=== PATIENT | male | born 1950 | race Caucasian/White ===

== ENCOUNTER 2016-04-13 06:47 | Emergency (ER) | payer MEDICARE ==
[~2016-04-13] VITALS: Ht 182.9 cm; Wt 99.8 kg
[~2016-04-13 06:47] MED LIST: ASPI-482 PO; ATOR20TA58 PO; GLIP10TA13 PO; LISI-338 PO; LISI10TA2 PO; METF100010 PO; METO25TA4 PO; NITR0.4T SL; TICA90TA PO
--- NOTE | 2016-04-13 06:54 | ED.ADGEN ---
Past Medical History Past Medical History: CAD, Diabetes-Type II Past Surgical History: Other Additional Past Surgical Histo: HERNIA REPAIR Alcohol Use: Rarely Drug Use: None Adult General Chief Complaint Chief Complaint: CHEST PAIN HPI HPI Patient is a 65 year old and, history of type 2 diabetes mellitus, hypertension , CAD status post stent placement, with 3 LAD stents placed on 04/10/2016, when he presented with an ST elevation myocardial infarction. Patient presents emergency Department with complaint of increasing shortness of breath, with pain worse with deep inspiration over the past several days. Discharged from hospital on Thursday. He denies any recurrence of the type of chest pain that brought him to the ED, states that he has been compliant with his medications since discharge. Denies any fevers, any chills, any productive cough, any weakness numbness or tingling, any headache or vision changes, any injuries, any GI or complaints. States the pain is located across the anterior portion of his chest, and worse with deep inspiration, is worse when he leans forward, states that it then radiates up into his neck. Review of Systems Review of Systems Constitutional: Denies fever or chills. [] Eyes: Denies change in visual acuity. [] HENT: Denies nasal congestion or sore throat. [] Respiratory: Occasional cough that is nonproductive, increasing shortness of breath with a past several days. [] Cardiovascular: Chest pain, worse with deep inspiration, no edema. GI: Denies abdominal pain, nausea, vomiting, bloody stools or diarrhea. [] : Denies dysuria. [] Musculoskeletal: Denies back pain or joint pain. [] Integument: Denies rash. [] Neurologic: Denies headache, focal weakness or sensory changes. [] Endocrine: Denies polyuria or polydipsia. [] Lymphatic: Denies swollen glands. [] Psychiatric: Denies depression or anxiety. [] Current Medications Current Medications Current Medications Medications (Trade) Dose Ordered Sig/Narciso Start Time Stop Time Status Last Admin Dose Admin Aspirin (Children'S Aspirin) 324 mg 1X ONCE 04/13/16 07:00 04/13/16 07:09 DC 04/13/16 07:41 324 MG Fentanyl Citrate (Fentanyl 2ml Vial) 25 mcg PRN Q15MIN PRN 04/13/16 07:00 04/13/16 09:05 DC Iohexol (Omnipaque 300 Mg/ml) 75 ml 1X ONCE 04/13/16 08:00 04/13/16 08:02 DC Nitroglycerin (Nitrostat) 0.4 mg PRN Q5MIN PRN 04/13/16 07:00 04/13/16 09:05 DC Allergies Allergies Allergies Coded Allergies Type Severity Reaction Last Updated Verified No Known Drug Allergies 04/10/16 No Physical Exam Physical Exam Constitutional: Well developed, well nourished, no acute distress, non-toxic appearance. [] HENT: Normocephalic, atraumatic, bilateral external ears normal, oropharynx moist, no oral exudates, nose normal. [] Eyes: PERRLA, EOMI, conjunctiva normal, no discharge. [] Neck: Normal range of motion, no tenderness, supple, no stridor. [] Cardiovascular:Heart rate regular rhythm, no murmur, S1, S2, no rubs or gallops. [] Lungs & Thorax: Bilateral breath sounds clear to auscultation, no wheezing, rhonchi, rales. No chest wall tenderness or crepitus. [Patient complains of pain with deep inspiration, I am unable to reproduce symptoms with palpation.] Abdomen: Bowel sounds normal, soft, no tenderness, no masses, no pulsatile masses. [] Skin: Warm, dry, no erythema, no rash. [] Back: No tenderness, no CVA tenderness. [] Extremities: No tenderness, no cyanosis, no clubbing, ROM intact, no edema. [ Negative Homans sign.] Neurologic: Alert and oriented X 3, normal motor function, normal sensory function, no focal deficits noted. [] Psychologic: Affect normal, judgement normal, mood normal. [] Current Patient Data Vital Signs Vital Signs Date Time Temp Pulse Resp B/P Pulse Ox O2 Delivery O2 Flow Rate FiO2 04/13/16 08:40 86 20 108/74 95 04/13/16 07:01 99.9 Room Air 99.9 Lab Values Laboratory Tests Test 04/13/16 07:25 White Blood Count 7.3x10^3/uL (4.0-11.0) Red Blood Count 4.87x10^6/uL (4.30-5.70) Hemoglobin 12.7g/dL (13.0-17.5) L Hematocrit 40.1% (39.0-53.0) Mean Corpuscular Volume 82fL (79-100) Mean Corpuscular Hemoglobin 26pg (25-35) Mean Corpuscular Hemoglobin Concent 32g/dL (31-37) Red Cell Distribution Width 13.9% (11.5-14.5) Platelet Count 192x10^3/uL (140-400) Neutrophils (%) (Auto) 71% (31-73) Lymphocytes (%) (Auto) 16% (24-48) L Monocytes (%) (Auto) 10% (0-9) H Eosinophils (%) (Auto) 2% (0-3) Basophils (%) (Auto) 1% (0-3) Neutrophils # (Auto) 5.2x10^3uL (1.8-7.7) Lymphocytes # (Auto) 1.2x10^3/uL (1.0-4.8) Monocytes # (Auto) 0.7x10^3/uL (0.0-1.1) Eosinophils # (Auto) 0.1x10^3/uL (0.0-0.7) Basophils # (Auto) 0.1x10^3/uL (0.0-0.2) Prothrombin Time 13.5SEC (11.7-14.0) Prothrombin Time INR 1.1 (0.8-1.1) PTT 26SEC (24-38) Sodium Level 135mmol/L (136-145) L Potassium Level 4.0mmol/L (3.5-5.1) Chloride Level 102mmol/L (98-107) Carbon Dioxide Level 24mmol/L (21-32) Anion Gap 9 (6-14) Blood Urea Nitrogen 14mg/dL (8-26) Creatinine 1.1mg/dL (0.7-1.3) Estimated GFR (Cockcroft-Gault) 67.0 BUN/Creatinine Ratio 13 (6-20) Glucose Level 149mg/dL (70-99) H Calcium Level 8.6mg/dL (8.5-10.1) Total Bilirubin 0.9mg/dL (0.2-1.0) Aspartate Amino Transferase (AST) 34U/L (15-37) Alanine Aminotransferase (ALT) 28U/L (16-63) Alkaline Phosphatase 66U/L (46-116) Troponin I Quantitative 4.981ng/mL (0.000-0.055) TD-Jvn-W-Type Natriuretic Peptide 2880pg/mL (0-124) H Total Protein 7.8g/dL (6.4-8.2) Albumin 3.2g/dL (3.4-5.0) L Albumin/Globulin Ratio 0.7 (1.0-1.7) L Lipase 226U/L (73-393) Laboratory Tests 04/13/16 07:25 Laboratory Tests 04/13/16 07:25 EKG EKG EC: Sinus rhythm, heart rate 88 beats/minute, low limb lead voltage noted , QTc of 368, IA 162, QRS 74, patient with ST elevations noted throughout the anterior, septal and lateral leads, no reciprocal changes identified, when compared to ECG from 04/10/2016, and 04/11/2016, morphologic changes are essentially preserved, patient has had interval normalization of leads V5 and 6 , with mild increase in elevation in leads V2 through V5, ECG findings discussed with Dr. Rebollar of cardiology, patient has known aneurysmal findings during cardiac catheterization, he agrees that ECG findings are not consistent with a recurrent acute myocardial infarction, and our consistent with the patient's known medical history. Radiology/Procedures Radiology/Procedures [] [facility] [address] [place], [place] [id number] IMAGING REPORT Signed PATIENT: JOSHUA MARTINEZ ACCOUNT: [id number] : 1950 LOCATION: SOUTH AGE: 65 SEX: M EXAM STATUS: ADM IN ORD. PHYSICIAN: EDWARD STODDARD MD REASON: PROCEDURE: Left Heart Catheterization &LV APPROVED REPORT Procedures Left heart catheterization. Selective coronary angiogram. Drug-eluting stents 3 to an occluded LAD. The patient is a 65-year-old male who presented to the emergency room with a history of 24 hours of intermittent chest pain. He states that his pain would increase and then resolved. He came to the emergency room due to increasing pain that did not resolve. In the emergency room a stat EKG suggested an anterior ST elevated myocardial infarction. Patient was treated with heparin and aspirin. Recommendation was made for an emergency catheterization and probable intervention. Risks and benefits were discussed. The patient agreed to proceed. After informed consent was obtained the patient was brought to the heart catheterization lab. The area of the right femoral artery was prepared in usual manner with Betadine, sterile draping and local anesthetic. An 18-gauge needle was used to enter the right femoral artery, a wire placed and a 6 Belarusian sheath placed over the wire. A 6 Belarusian JL4 guide was used to engage the left coronary system. Sequential injections showed an occlusion of the LAD initially. Further injections showed a proximal 60% or greater lesion with contrast hang-up, a proximal to mid subtotal lesion and a mid subtotal lesion. WE proceeded to revascularize the LAD. Heparin and Aggrastat were given as per protocol. A PT choice wire was used to cross the lesions. Initially a 2.5 x 15 Trek balloon was used for 3 inflations with a maximum pressure of 8 louise and the maximum time of 20 seconds to open the subtotal lesions. Then in a distal to proximal fashion a 2.5 x 23 Xience Alpine drug-eluting stent was deployed in the more distal lesion and at 15 louise for 15 seconds. A 3.0 x 23 Xience Alpine drug-eluting stent was deployed at the mid lesion with overlap to the initial stent. It was deployed at 15 louise for 15 seconds with one overlapping inflation of 15 louise for 10 seconds. Additional imaging showed a proximal lesion with contrast hang-up. This was stented with a 3.5 x 15 Xience Alpine drug-eluting stent with one inflation at 16 louise for 16 seconds. Injection showed good flow down a moderately large LAD. There were no significant lesions in the left circumflex system. We then removed the guiding system from the patient. A 6 Belarusian Kehinde right diagnostic catheter was then used to engage the right coronary system. Sequential injections in various views were obtained. A pigtail catheter was then advanced to the ascending aorta and then the left ventricle. Pressures were obtained. No left ventriculogram was performed secondary to contrast count. Pressures were measured. The catheter was removed from the patient. Injection of the sheath showed normal placement. ACT time was acceptable. The sheath was removed and sealed with an Angio-Seal product. The patient was then transferred to the intensive care unit. Findings Hemodynamics LV pressure 147/40, irritable pressure 145/76. Coronaries. Left main. The left main had a 10% lesion. Left anterior descending. The LAD had 3 sequential lesions with a proximal greater than 60-65% lesion, a proximal to mid subtotal lesion and a mid subtotal lesion. Left circumflex. The left circumflex had a mid 25% lesion and an ostial 30% lesion in obtuse marginal 1. Right coronary artery. The right coronary was a large dominant vessel. Had a distal 15% lesion. Conclusions ST elevated myocardial infarction secondary to occlusion of the left anterior descending vessel. Successful stenting of three sequential LAD lesions with a 0% residual. Mild to moderate disease in the left circumflex and right coronary artery. DICTATED and SIGNED BY: ANIKA GUZMÁN MD DATE: 04/11/16 1108 CC: ANIKA GUZMÁN MD; MARÍA STEELE APRN; EDWARD STODDARD MD ~ Course & Med Decision Making Course & Med Decision Making Pertinent Labs and Imaging studies reviewed. (See chart for details) Patient well-appearing, mild pain with inspiration, oxygen saturation is in the mid upper 90s, respiratory rate is unlabored, resting comfortably. No significant dyspnea on exertion, no other complaints. Discussed with patient that his symptoms are likely the result of his recent IA with stenting, he is denying any fever, any productive cough, or other infectious symptoms, however based on his recent hospitalization chest x-ray and laboratory studies obtained. Chest x-rays unremarkable, patient noted be mildly hypotensive, 90s over 60s, which she states has been occurring since his medications were adjusted, but he denies any orthostatic type symptoms. Repeat troponin is 4.9, from greater than 50 on the patient's admission. Other laboratory studies are within normal limits. I did discuss findings as above with Dr. Rebollar cardiology, due to patient's recent hospitalization, and complaints, CT of the chest also obtained to rule out any occult disease not identified on chest x-ray , any potential vascular abnormalities. CT of the chest did not reveal any evidence of acutely concerning finding, aside from very mild atelectasis bilaterally. I did discuss these findings with patient, he is resting comfortably at this time after receiving aspirin in the ED, although he continues to have mild symptoms, states that he would rather be discharged home , versus admission to the hospital for additional observation and evaluation as discussed, states that he can easily return to the hospital if any new or concerning symptoms develop. Orthostatics were negative in the emergency department, patient ambulating without difficulty. I did discuss this with Dr. Rebollar, was agreeable to this plan, requests the patient call the office on Thursday to schedule follow-up in the office next week. I did discuss this plan with the patient and his at bedside voiced understanding and agreement, patient is on occasional home, will continue NSAIDs for discomfort, continue all his home medications as directed, and will return to the ED if any concerning symptoms develop. Patient discharged home in stable condition with his with plan as above. Dragon Disclaimer Dragon Disclaimer This electronic medical record was generated, in whole or in part, using a voice recognition dictation system. Departure Impression: Primary Impression: Chest pain Disposition: HOME, SELF-CARE Condition: IMPROVED Scripts Naproxen 250 Mg Ainbox725 Mg PO BID PRN PAIN #10 Prov:ANABELLA BETH DO 04/13/16 Problem Qualifiers Primary Impression: Chest pain Chest pain type: pleurodynia Qualified Code: R07.81 - Pleurodynia ANABELLA BETH DO Apr 13, 2016 06:54
[2016-04-13] MEDS ORDERED: NITROGLYCERIN SUBLINGUAL 0.4 MG BOTTLE OF 25. SL PRN (07:00)
[2016-04-13] MEDS ORDERED: ASPIRIN 81 MG TAB.CHEW PO ONE (07:00)
[2016-04-13] MEDS ORDERED: FENTANYL PF 100 MCG/2 ML VIAL. IV PRN (07:00)
--- NOTE | 2016-04-13 07:22 | RAD ---
Portable chest, 04/13/2016: History: Chest pain Comparison is made to a study from 04/10/2016. The heart size and pulmonary vascularity are normal. No pulmonary infiltrates are seen. There is no evidence of pleural fluid. IMPRESSION: No acute cardiopulmonary abnormality is detected.
[2016-04-13 07:41] LABS: BASO # 0.1 x10^3/uL (0.0-0.2); BASO % 1 % (0-3); EOS % 2 % (0-3); HEMATOCRIT 40.1 % (39.0-53.0); HEMOGLOBIN 12.7 g/dL (13.0-17.5); LYMPH # 1.2 x10^3/uL (1.0-4.8); LYMPH % 16 % (24-48); MEAN CORPUSCULAR HEMOGLOBIN 26 pg (25-35); MEAN CORPUSCULAR HGB CONC 32 g/dL (31-37); MEAN CORPUSCULAR VOLUME 82 fL (79-100); MONO % 10 % (0-9); NEUT % 71 % (31-73); PLATELET COUNT 192 x10^3/uL (140-400); RED BLOOD COUNT 4.87 x10^6/uL (4.30-5.70); RED CELL DISTRIBUTION WIDTH 13.9 % (11.5-14.5); WHITE BLOOD COUNT 7.3 x10^3/uL (4.0-11.0)
[2016-04-13 07:50] LABS: CALCIUM 8.6 mg/dL (8.5-10.1); CREATININE 1.1 mg/dL (0.7-1.3)
[2016-04-13 07:54] LABS: ALBUMIN 3.2 g/dL (3.4-5.0); ALBUMIN/GLOBULIN RATIO 0.7 (1.0-1.7); TOTAL BILIRUBIN 0.9 mg/dL (0.2-1.0); TOTAL PROTEIN 7.8 g/dL (6.4-8.2)
[2016-04-13 07:57] LABS: INR 1.1 (0.8-1.1); PROTHROMBIN TIME PATIENT 13.5 SEC (11.7-14.0)
[2016-04-13] MEDS ORDERED: IOHEXOL 300 MG/ML 75 ML VIAL IV ONE (08:00)
--- NOTE | 2016-04-13 08:31 | RAD ---
CTA of the chest with contrast, 04/13/2016: History: Chest pain, shortness of breath Multidetector CT imaging was performed following an IV bolus injection of iodinated contrast material. Multiplanar reconstructions were produced including coronal MIP images The central pulmonary arteries are well opacified and no filling defects are seen to suggest pulmonary emboli. There is mild calcific plaquing of the thoracic aorta without evidence of aneurysm. Coronary artery stents and/or calcifications are present. No mediastinal or hilar adenopathy is seen. There are mild peripheral linear and groundglass opacities predominantly in the lung bases compatible with scarring and/or atelectasis. No pulmonary mass or significant consolidation is seen. There is no evidence of pleural fluid. There is a calcified granuloma in the left lower lobe. IMPRESSION: 1. No CT evidence of central pulmonary emboli. 2. Coronary artery disease. 3. Mild dependent atelectasis and/or scarring in the lung bases. PQRS Compliance Statement: One or more of the following individualized dose reduction techniques were utilized for this examination: 1. Automated exposure control 2. Adjustment of the mA and/or kV according to patient size 3. Use of iterative reconstruction technique
[2016-04-13 08:40] VITALS: BP 108/74
[2016-04-13] MEDS ORDERED: NAPR250T2 PO (08:47)
--- NOTE | 2016-04-13 11:44 | EKG ---
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
== END 2016-04-13 09:05 | disposition home or self-care (01) ==
LOC: ER 06:47
DX: R07.81 Pleurodynia (principal); I10 Essential (primary) hypertension; I25.10 Atherosclerotic heart disease of native coronary artery without angina pectoris; E11.9 Type 2 diabetes mellitus without complications; R06.02 Shortness of breath; Z95.5 Presence of coronary angioplasty implant and graft
CPT/HCPCS: 36415; 71010; 71275; 80053; 83690; 83880; 84484; 85027; 85610; 85730; 93005; 99285; Q9967

== ENCOUNTER → 2016-07-10 | Outpatient (CLI) | payer MEDICARE ==
[~2016-07-10] MED LIST changes: +NAPR250T2 PO
--- NOTE | 2016-07-10 15:49 | CARD ---
APPROVED REPORT EXAM: Two-dimensional and M-mode echocardiogram with Doppler and color Doppler. Other Information Quality : GoodHR: 71bpm Rhythm : NSR INDICATION Status/Post HI 2D DIMENSIONS RVDd3.0 (2.9-3.5cm)Left Atrium(2D)3.5 (1.6-4.0cm) IVSd1.0 (0.7-1.1cm)Aortic Root(2D)2.8 (2.0-3.7cm) LVDd4.7 (3.9-5.9cm)LVOT Diameter2.2 (1.8-2.4cm) PWd1.0 (0.7-1.1cm)LVDs3.2 (2.5-4.0cm) FS (%) 31.3 %SV59.5 ml LVEF(%)59.2 (>50%) Aortic Valve AoV Peak Gilbert.116.5cm/sAoV VTI23.9cm AO Peak GR.5.4mmHgLVOT Peak Gilbert.88.7cm/s LVOT VTI 17.69cmAO Mean GR.3mmHg NED (VMAX)3.81oa3BBX (VTI)2.93cm2 Mitral Valve MV E Fkxwbmqx70.4cm/sMV DECEL YPFM807iy MV A Ueijtsxl77.9cm/sMV E Mean Gr.1mmHg MV RSH76byO/A Ratio1.0 MV A Evjprevz431eaOTA (PHT)2.78cm2 TDI E/Lateral E'7.3E/Medial E'8.9 Pulmonary Valve PV Peak Vbqnvejs06.0cm/sPV Peak Grad.2mmHg RVOT VTI17.2cm Tricuspid Valve TR P. Xmfgkzga164tz/sRAP HXRZXCCB6uuAr TR Peak Gr.03fiLdMYFU13tkSr Pulmonary Vein S1 Nuroytyj27.0cm/sD2 Khftxqjx26.4cm/s PVa jrdqopml759qkil LEFT VENTRICLE The left ventricle is normal size. There is normal left ventricular wall thickness. Left ventricle sy stolic function is normal. The Ejection Fraction is 60-65%. There is normal LV segmental wall motion. The left ventricular diastolic function and filling is normal for age. There is no ventricular septa l defect visualized. RIGHT VENTRICLE The right ventricle is normal size. The right ventricular systolic function is normal. ATRIA The left atrium size is normal. The right atrium size is normal. The interatrial septum is intact wit h no evidence for an atrial septal defect or patent foramen ovale as noted on 2-D or Doppler imaging. AORTIC VALVE The aortic valve is mildly thickened but opens well. The aortic valve is trileaflet. Doppler and King r Flow revealed no significant aortic regurgitation. There is no significant aortic valvular stenosis . MITRAL VALVE The mitral valve leaflets are mildly thickened. There is no evidence of mitral valve prolapse. There is no mitral valve stenosis. Doppler and Color Flow revealed trace mitral regurgitation. TRICUSPID VALVE The tricuspid valve is normal in structure and function. Doppler and Color Flow revealed trace tricus pid regurgitation. The PA pressure was estimated at 23 mmHg. There is no tricuspid valve stenosis. PULMONIC VALVE The pulmonary valve is normal in structure and function. Doppler and Color Flow revealed no pulmonic valvular regurgitation. There is no pulmonic valvular stenosis. GREAT VESSELS The aortic root is normal in size. The ascending aorta is normal in size. Normal pulmonary venous westley w (Doppler). The IVC is normal in size and collapses >50% with inspiration. PERICARDIAL EFFUSION There is no pleural effusion. There is no evidence of significant pericardial effusion. Critical Notification Critical Value: No <Conclusion> Left ventricle systolic function is normal. The Ejection Fraction is 60-65%. There is normal LV segmental wall motion. Trace mitral regurgitation. Trace tricuspid regurgitation. There is no evidence of significant pericardial effusion.
== END | disposition home or self-care (01) ==
LOC: ECHO 09:42
PROVIDERS: ATTEND Internal Medicine Cardiovascular Disease
DX: I25.2 Old myocardial infarction (principal); I08.1 Rheumatic disorders of both mitral and tricuspid valves
CPT/HCPCS: 93306

== ENCOUNTER → 2016-09-05 | Outpatient (CLI) | payer BC ==
[~2016-09-05] MED LIST changes: +IOHEXOL 240 MG/ML 50ML VIAL. PO ONE; +IOHEXOL 300 MG/ML 100ML VIAL. IV ONE
--- NOTE | 2016-09-05 14:58 | KCIC ---
CT abdomen and pelvis with contrast History: Right lower quadrant pain for one week Technique: After the administration of oral and intravenous contrast, CT imaging was performed of the abdomen and pelvis. Multiplanar images are reviewed. Exposure: One or more of the following individualized dose reduction techniques were utilized for this examination: 1. Automated exposure control 2. Adjustment of the mA and/or kV according to patient size 3. Use of iterative reconstruction technique. Contrast: 100 cc Omnipaque 300 Comparison: None Findings: There is no significant abnormality of the visualized lung bases. There is no significant abnormality of the liver, spleen, pancreas, adrenal glands. Both kidneys enhance without hydronephrosis. There is 4.6 cm cyst protruding posteriorly from the inferior right kidney.Gallbladder is present without obvious intraluminal abnormality by CT. There is no significant inflammatory change adjacent to the bowel. Normal appendix is visualized. There is no evidence of bowel obstruction, free fluid, or free air. There is overall mild colonic diverticulosis without evidence of diverticulitis. The bladder has a normal configuration. Nodular appearing prostate gland indents the base of the urinary bladder. Prostate measures approximately 4.8 cm x 5 cm x 5.3 cm. There is moderate to severe degenerative disc disease L5-S1, associated vacuum disc disease. Impression: 1. No acute abnormality is identified, no CT evidence of acute appendicitis. There is mild colonic diverticulosis. 2. Nodular appearing prostate gland indents the base of urinary bladder, prostate cancer screening advised if not already performed. 3. There is right renal cyst. Electronically signed by: Humberto Barroso MD (09/05/2016 2:54 PM)
== END | disposition home or self-care (01) ==
LOC: KCIC CT 13:12
PROVIDERS: ATTEND Nurse Practitioner Family
DX: R10.31 Right lower quadrant pain (principal); Z86.79 Personal history of other diseases of the circulatory system; I10 Essential (primary) hypertension; Z79.01 Long term (current) use of anticoagulants; F17.200 Nicotine dependence, unspecified, uncomplicated; Z79.4 Long term (current) use of insulin
CPT/HCPCS: 74177; 82565; Q9966; Q9967

== ENCOUNTER → 2016-12-08 | Outpatient (CLI) | payer BC ==
[~2016-12-08] MED LIST changes: -IOHEXOL 240 MG/ML 50ML VIAL. PO ONE; -IOHEXOL 300 MG/ML 100ML VIAL. IV ONE; -NAPR250T2 PO; +NAPR250T6 PO; +REGADENOSON 0.4 MG/5 ML DISP.SYRIN. IV ONE
--- NOTE | 2016-12-08 13:10 | RAD ---
APPROVED REPORT Test Type: Pharmacological Stress Nurse/Tech: Eugenie Cope R.N. Test Indications: cad Cardiac History: [place], stents 03/2016, dm Medications: see ehr Medical History: see ehr Resting ECG: SR Resting Heart Rate: 72 bpm Resting Blood Pressure: 102/63mmHg Pretest Chest Pain: No chest pain Nurse/Tech Notes lungs cta, heart tones regular Consent: The procedure was explained to the patient in lay terms. Informed consent was witnessed. Ashok eout was entered into [employer]. History and Stress Test performed by CL Vu, ARRT (R) (N) Pharm. Details Pharmacologic stress testing was performed using 0.4mg per 5ml of regadenoson given intravenously ove r 7-10 seconds. Stress Symptoms No chest pain or symptoms. POST EXERCISE Reason for Termination: Infusion complete Target HR: No Max HR: 97 bpm Max Blood Pressure: 113/54mmHg Chest Pain: No. Arrhythmia: No. ST Change: No. INTERPRETATION Stress EKG Conclusion: No evidence of stress induced EKG changes. Imaging Protocol IMAGE PROTOCOL: Rest Tc-99m/stress Tc-99m 1 day Rest: Stress: Viability: Radiopharm.Tc99m MpynejylfKd19z Sestamibi Nlry87eEw 34mCi Duration 17min. 12min. Img Date 12/08/2016 12/08/2016 Inj-Img Ndcy58wnm. 60min. Rest Admin Site:IV - Right AntecubitalAdministrator:RT Chary (R)(N) Stress Admin Site: IV - Right AntecubitalAdministrator: RT Dangelo (R)(N) STRESS DATA End Diast. Vol.95.0mlAv. Heart Rate84.0bpm End Syst. Vol.27.0mlCO Index BSA0.0L/min Myocardial Igya352.0gEject. Qytmcdat70.0% Stress Rates Pk. Fill Rate3.12EDV/secLVtime Pk. Fill 168.66msec Pk. Empty Rate4.05ESV/secLVtime Pk. Kwrnv999.59msec 03/25 Pk. Fill0.96EDV/sec Stress Scores Regional WT1.00Summed WT2.00 Regional WM0.00Summed WM0.00 LV Perfusion 1. There is a moderate sized, severe in intensity, distal anterior, apical and distal inferior wall F IXED defect suggestive of prior infarct without ischemia. Based on defect tracer uptake on the rest i mages, this defect is mostly viable. 2. Due to significant motion, this defect may represent an artifact due to normal wall motion in the apex. Wall Motion Grossly normal wall motion. EF > 70% LV Perf. Quant 17 Seg. SSS9.00 17 Seg. SRS11.00 17 Seg. SDS0.00 Stress Defect Extent (% LAD)43.10Rest Defect Extent (% LAD)38.10Rev. Defect Extent (% LAD)3.10 Stress Defect Extent (% LCX) 0.00Rest Defect Extent (% LCX)5.00Rev. Defect Extent (% LCX)0.00 Stress Defect Extent (% RCA)0.00Rest Defect Extent (% RCA)0.00Rev. Defect Extent (% RCA)0.00 Stress Defect Extent (% GURJIT)22.60Rest Defect Extent (% GURJIT)19.60Rev. Defect Extent (% GURJIT)2.40 Other Information Quality:Fair Risk Assessment: Low-Moderate Risk Conclusion 1. No evidence of stress induced EKG changes 2. There is a moderate sized, severe in intensity, distal anterior, apical and distal inferior wall F IXED defect suggestive of prior infarct without ischemia. Based on defect tracer uptake on the rest i mages, this defect is mostly viable. 3. Due to significant motion, this defect may represent an artifact due to normal wall motion in the apex. 4. Low to moderate risk study for future CV events 5. Normal EF at > 70%
== END | disposition home or self-care (01) ==
LOC: NM 08:30
PROVIDERS: ATTEND Internal Medicine Cardiovascular Disease
DX: I25.10 Atherosclerotic heart disease of native coronary artery without angina pectoris (principal); I49.5 Sick sinus syndrome; I10 Essential (primary) hypertension; E11.9 Type 2 diabetes mellitus without complications; Z79.01 Long term (current) use of anticoagulants
CPT/HCPCS: 78452; 93017; 96374; 96375; 96376; A9500; J2785

== ENCOUNTER 2017-03-02 19:40 | Emergency (ER) | payer BC ==
[~2017-03-02] VITALS: Ht 180.3 cm; Wt 99.8 kg
[~2017-03-02 19:40] MED LIST changes: -REGADENOSON 0.4 MG/5 ML DISP.SYRIN. IV ONE
[2017-03-02 20:31] LABS: BASO % 1 % (0-3); EOS % 4 % (0-3); HEMATOCRIT 43.3 % (39.0-53.0); HEMOGLOBIN 13.9 g/dL (13.0-17.5); LYMPH # 1.6 x10^3/uL (1.0-4.8); LYMPH % 30 % (24-48); MEAN CORPUSCULAR HEMOGLOBIN 27 pg (25-35); MEAN CORPUSCULAR HGB CONC 32 g/dL (31-37); MEAN CORPUSCULAR VOLUME 83 fL (79-100); MONO % 10 % (0-9); NEUT % 55 % (31-73); PLATELET COUNT 194 x10^3/uL (140-400); RED BLOOD COUNT 5.21 x10^6/uL (4.30-5.70); RED CELL DISTRIBUTION WIDTH 14.1 % (11.5-14.5); WHITE BLOOD COUNT 5.4 x10^3/uL (4.0-11.0)
[2017-03-02 20:43] LABS: CALCIUM 8.3 mg/dL (8.5-10.1); GFR 74.5
[2017-03-02 20:49] LABS: ALBUMIN 3.8 g/dL (3.4-5.0); TOTAL BILIRUBIN 0.3 mg/dL (0.2-1.0); TOTAL PROTEIN 7.8 g/dL (6.4-8.2)
--- NOTE | 2017-03-02 21:10 | PHYS DOC ---
Past Medical History Past Medical History: CAD, Diabetes-Type II Past Surgical History: Other Additional Past Surgical Histo: HERNIA REPAIR Alcohol Use: Rarely Drug Use: None Adult General Chief Complaint Chief Complaint: CHEST PAIN HPI HPI Patient is a 66 year old male who presents with a hours of intermittent intensity moderate substernal chest discomfort somewhat more pleuritic not necessarily exertional; no leg swelling no cough or fever. Not necessarily similar to her previous cardiac history. History of cardiac stents and coronary artery disease no CABG. PCP is Dr. Perea and commercial solar sales consultant is Dr. Arora. Review of Systems Review of Systems Constitutional: Denies fever or chills [] Eyes: Denies change in visual acuity, redness, or eye pain [] HENT: Denies nasal congestion or sore throat [] Respiratory: Denies cough or shortness of breath [] Cardiovascular: No additional information not addressed in HPI [] GI: Denies abdominal pain, nausea, vomiting, bloody stools or diarrhea [] : Denies dysuria or hematuria [] Musculoskeletal: Denies back pain or joint pain [] Integument: Denies rash or skin lesions [] Neurologic: Denies headache, focal weakness or sensory changes [] Endocrine: Denies polyuria or polydipsia [] All other systems were reviewed and found to be within normal limits, except as documented in this note. Current Medications Current Medications Current Medications Medications (Trade) Dose Ordered Sig/Narciso Start Time Stop Time Status Last Admin Dose Admin Nitroglycerin (Nitrostat) 0.4 mg PRN Q5MIN PRN 03/02/17 21:15 03/02/17 22:00 DC 03/02/17 21:15 0.4 MG Allergies Allergies Allergies Coded Allergies Type Severity Reaction Last Updated Verified No Known Drug Allergies 04/10/16 No Physical Exam Physical Exam Constitutional: Well developed, well nourished, no acute distress, non-toxic appearance. [] HENT: Normocephalic, atraumatic, bilateral external ears normal, oropharynx moist, no oral exudates, nose normal. [] Eyes: PERRLA, EOMI, conjunctiva normal, no discharge. [] Neck: Normal range of motion, no tenderness, supple, no stridor. [] Cardiovascular:Heart rate regular rhythm, no murmur [] Lungs & Thorax: Bilateral breath sounds clear to auscultation [] Abdomen: Bowel sounds normal, soft, no tenderness, no masses, no pulsatile masses. [] Skin: Warm, dry, no erythema, no rash. [] Back: No tenderness, no CVA tenderness. [] Extremities: No tenderness, no cyanosis, no clubbing, ROM intact, no edema. [] Neurologic: Alert and oriented X 3, normal motor function, normal sensory function, no focal deficits noted. [] Psychologic: Affect normal, judgement normal, mood normal. [] Current Patient Data Vital Signs Vital Signs Date Time Temp Pulse Resp B/P (MAP) Pulse Ox O2 Delivery O2 Flow Rate FiO2 03/02/17 21:50 74 16 107/68 (81) 98 Room Air 03/02/17 19:49 98.2 98.2 Lab Values Laboratory Tests Test 03/02/17 19:50 White Blood Count 5.4 x10^3/uL (4.0-11.0) Red Blood Count 5.21 x10^6/uL (4.30-5.70) Hemoglobin 13.9 g/dL (13.0-17.5) Hematocrit 43.3 % (39.0-53.0) Mean Corpuscular Volume 83 fL (79-100) Mean Corpuscular Hemoglobin 27 pg (25-35) Mean Corpuscular Hemoglobin Concent 32 g/dL (31-37) Red Cell Distribution Width 14.1 % (11.5-14.5) Platelet Count 194 x10^3/uL (140-400) Neutrophils (%) (Auto) 55 % (31-73) Lymphocytes (%) (Auto) 30 % (24-48) Monocytes (%) (Auto) 10 % (0-9) H Eosinophils (%) (Auto) 4 % (0-3) H Basophils (%) (Auto) 1 % (0-3) Neutrophils # (Auto) 3.0 x10^3uL (1.8-7.7) Lymphocytes # (Auto) 1.6 x10^3/uL (1.0-4.8) Monocytes # (Auto) 0.6 x10^3/uL (0.0-1.1) Eosinophils # (Auto) 0.2 x10^3/uL (0.0-0.7) Basophils # (Auto) 0.0 x10^3/uL (0.0-0.2) D-Dimer (Lory) < 0.27 ug/mlFEU Sodium Level 138 mmol/L (136-145) Potassium Level 4.0 mmol/L (3.5-5.1) Chloride Level 102 mmol/L (98-107) Carbon Dioxide Level 25 mmol/L (21-32) Anion Gap 11 (6-14) Blood Urea Nitrogen 13 mg/dL (8-26) Creatinine 1.0 mg/dL (0.7-1.3) Estimated GFR (Cockcroft-Gault) 74.5 BUN/Creatinine Ratio 13 (6-20) Glucose Level 215 mg/dL (70-99) H Calcium Level 8.3 mg/dL (8.5-10.1) L Total Bilirubin 0.3 mg/dL (0.2-1.0) Aspartate Amino Transferase (AST) 14 U/L (15-37) L Alanine Aminotransferase (ALT) 26 U/L (16-63) Alkaline Phosphatase 72 U/L (46-116) Troponin I Quantitative < 0.017 ng/mL (0.000-0.055) Total Protein 7.8 g/dL (6.4-8.2) Albumin 3.8 g/dL (3.4-5.0) Albumin/Globulin Ratio 1.0 (1.0-1.7) Laboratory Tests 03/02/17 19:50 Laboratory Tests 03/02/17 19:50 EKG EKG EKG normal sinus rhythm rate of 88 no STEMI QTC normal my interpretation[] Radiology/Procedures Radiology/Procedures Chest x-ray no acute cardiopulmonary process my interpretation.[] Course & Med Decision Making Course & Med Decision Making Pertinent Labs and Imaging studies reviewed. (See chart for details) [Troponin was negative chest x-ray and EKG were unremarkable. D-dimer checked] re-xam 2141 pm: CP resolved. pt declines admission for serial EKGs and enzymes and possibility of heart catheter or further cardiac workup. He understands risks including and disability. Dragon Disclaimer Dragon Disclaimer This electronic medical record was generated, in whole or in part, using a voice recognition dictation system. Departure Departure Impression: Primary Impression: Acute chest pain Disposition: HOME, SELF-CARE Condition: STABLE Referrals: ANTONIO OLIVEROS MD (PCP) Patient Instructions: Chest Pain (Nonspecific), [id number] ALECIA MALDONADO MD Mar 02, 2017 21:10
[2017-03-02] MEDS ORDERED: NITROGLYCERIN SUBLINGUAL 0.4 MG BOTTLE OF 25. SL PRN (21:15)
[2017-03-02 21:50] VITALS: BP 107/68
--- NOTE | 2017-03-03 06:53 | EKG ---
[facility] [address] [place] [address] Test Date: 2017-03-02 Test Time: 19:47:27 Pat Name: JOSHUA MARTINEZ Department: Room: Gender: M Dance Critic: SHIRA : 1950 Requested By: ALECIA MALDONADO Order Number: [id number] Reading MD: Measurements Intervals [place] Rate: 88 P: 56 SD: 172 QRS: 0 QRSD: 72 T: 28 QT: 322 QTc: 393 Interpretive Statements SINUS RHYTHM LEFTWARD AXIS OTHERWISE NORMAL ECG RI6.01 No previous ECG available for comparison
--- NOTE | 2017-03-03 08:08 | RAD ---
Indication: Cough. Atraumatic left chest pain today. Technique: Upright portable chest radiograph was obtained. Comparison is from April 13, 2016. Findings: The lungs are clear. The heart is not enlarged and there is no heart failure. Bony structures are intact. Leads overlie the patient. Impression: No acute thoracic findings.
== END 2017-03-02 21:55 | disposition home or self-care (01) ==
LOC: ER 19:40
DX: R07.89 Other chest pain (principal); I25.10 Atherosclerotic heart disease of native coronary artery without angina pectoris; E11.9 Type 2 diabetes mellitus without complications; Z95.5 Presence of coronary angioplasty implant and graft
CPT/HCPCS: 36415; 71010; 80053; 84484; 85025; 85379; 93005; 99285-25

== ENCOUNTER → 2019-03-18 | Outpatient (CLI) | payer BC ==
[~2019-03-18] MED LIST changes: -NITR0.4T SL; +NITR0.4T24 SL; +REGADENOSON 0.4 MG/5 ML DISP.SYRIN. IV ONE
--- NOTE | 2019-03-18 11:20 | RAD ---
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 Consent: The procedure was explained to the patient in lay terms. Informed consent was witnessed. Ashok eout was entered into [employer]. History and Stress Test performed by [employer] [employer]. Details Pharmacologic stress testing was performed using 0.4mg per 5ml of regadenoson given intravenously ove r 7-10 seconds. Stress Symptoms No chest pain or symptoms. POST EXERCISE Reason for Termination: Infusion complete Target HR: No Max HR: 103 bpm 80% of Maximum Predicted HR: 128 bpm Max Blood Pressure: 137/68mmHg Blood Pressure response to exercise: Normal blood pressure response during stress. Heart Rate response to exercise: WNL Chest Pain: No. Arrhythmia: No. ST Change: No. INTERPRETATION Stress EKG Conclusion: Baseline EKG showed sinus rhythm. No ischemic changes at peak stress. No arr hythmias. Imaging Protocol IMAGE PROTOCOL: Rest Tc-99m/stress Tc-99m 1 day Rest: Stress: Viability: Radiopharm.Tc99m [id number] Sestamibi Yrnn35wLv 33mCi Duration 15min. 15min. Img Date 03/18/2019 03/18/2019 Inj-Img [id number]. 60min. Rest Admin Site:IV - Left AntecubitalAdministrator:RT Dangelo (R)(N) Stress Admin Site: IV - Left AntecubitalAdministrator: RT Dangelo (R)(N) STRESS DATA End Diast. Vol.98.0mlEnd Syst. Vol.37.0ml Myocardial Ytzu139.0gEject. Izxnjiix09.0% Stress Scores Regional WT0.00Summed WT2.00 Regional WM0.00Summed WM6.00 LV Perfusion Scintigraphic images showed small fixed defect apical wall most probably artifact based on normal wal l motion. No other fixed or reversible defects seen. Wall Motion Normal left ventricular systolic function with ejection fraction calculated at 62%. LV Perf. Quant 17 Seg. SSS16.00 17 Seg. SRS17.00 17 Seg. SDS1.00 Stress Defect Extent (% LAD)48.10Rest Defect Extent (% LAD)49.40Rev. Defect Extent (% LAD)3.10 Stress Defect Extent (% LCX) 5.00Rest Defect Extent (% LCX)5.00Rev. Defect Extent (% LCX)0.00 Stress Defect Extent (% RCA)0.00Rest Defect Extent (% RCA)45.60Rev. Defect Extent (% RCA)0.00 Stress Defect Extent (% GURJIT)30.00Rest Defect Extent (% GURJIT)36.10Rev. Defect Extent (% GURJIT)2.20 Conclusion 1. Regadenoson cardioisotope stress test did not show any definite evidence of ischemia or infarct. 2. Normal left ventricular systolic function with ejection fraction calculated at 62%. 3. Low risk for cardiac events. Signed by : Jose F Rebollar, Electronically Approved : 03/18/2019 11:20:33
== END | disposition home or self-care (01) ==
LOC: NM 07:54
PROVIDERS: ATTEND Internal Medicine Cardiovascular Disease
DX: I25.10 Atherosclerotic heart disease of native coronary artery without angina pectoris (principal); E11.9 Type 2 diabetes mellitus without complications; Z95.828 Presence of other vascular implants and grafts
CPT/HCPCS: 78452; 93017; A9500; J2785

== ENCOUNTER 2020-03-30 20:01 | Emergency (ER) | payer BC, OTHER ==
[~2020-03-30] VITALS: Ht 182.9 cm; Wt 101.0 kg
[~2020-03-30 20:01] MED LIST changes: -LISI-338 PO; +LISI-517 PO; +LISI10TA16 PO; -LISI10TA2 PO; +NAPR-699 PO; -NAPR250T6 PO; -REGADENOSON 0.4 MG/5 ML DISP.SYRIN. IV ONE
[2020-03-30] MEDS ORDERED: DIPH,PERTUSS(ACELL),TET VAC/PF 0.5 ML SYRINGE. VAX IM ONE (21:30)
[2020-03-30] MEDS ORDERED: NEOMY/BACITR/POLYMYXIN OINT PACKET. TP ONE (21:30)
[2020-03-30] MEDS ORDERED: LIDOCAINE 1% Multi-Dose 20 ML VIAL. INJ ONE (21:30)
[2020-03-30 21:50] LABS: BASO # 0.1 x10^3/uL (0.0-0.2); BASO % 1 % (0-3); EOS # 0.2 x10^3/uL (0.0-0.7); EOS % 2 % (0-3); HEMATOCRIT 44.8 % (39.0-53.0); HEMOGLOBIN 14.3 g/dL (13.0-17.5); LYMPH # 1.2 x10^3/uL (1.0-4.8); LYMPH % 17 % (24-48); MEAN CORPUSCULAR HEMOGLOBIN 27 pg (25-35); MEAN CORPUSCULAR HGB CONC 32 g/dL (31-37); MEAN CORPUSCULAR VOLUME 84 fL (79-100); MONO # 0.6 x10^3/uL (0.0-1.1); MONO % 8 % (0-9); NEUT # 5.1 x10^3/uL (1.8-7.7); NEUT % 72 % (31-73); PLATELET COUNT 196 x10^3/uL (140-400); RED BLOOD COUNT 5.33 x10^6/uL (4.30-5.70); RED CELL DISTRIBUTION WIDTH 13.9 % (11.5-14.5)
[2020-03-30 22:00] LABS: PROTHROMBIN TIME PATIENT 11.7 SEC (11.7-14.0)
--- NOTE | 2020-03-30 22:09 | RAD ---
CT HEAD AND C-SPINE WO, CT MAXILLOFACIAL WITHOUT CONTRAST Date: 03/30/2020 9:23 PM Clinical Indication: Pain, FALL,LACERATION, ASPIRIN USE / Spl. Instructions: / History: Comparison: None. Technique: 5 mm axial tomographic images were obtained of the head without contrast. These were view ed on brain and bone windows. Axial helical images of the face were obtained without contrast. Axial and coronal reconstruction was performed. CT imaging of the cervical spine was performed without cont rast. Coronal and sagittal reformatted images were performed. One or more of the following dose reduc tion techniques were utilized: Automated exposure control (AEC), Adjustment of mA and/or kV according to patient size, Use of iterative reconstruction technique such as ASiR, CT scan done according to A TUNDE and image gently/image wisely CT HEAD FINDINGS: The brain parenchyma is normal in attenuation. No intra- or extra-axial mass or fluid collection. No acute hemorrhage. The ventricles are normal in size, shape, and morphology. The eid-white matter nando ction is normal. The basilar cisterns are patent. The mastoid air cells are clear. No aggressive osseous lesion or fracture. Right frontal scalp injury CT FACE FINDINGS: Acute bilateral nasal fracture, depressed on the right. The paranasal sinuses are clear. The orbits are normal. The globes are intact. The nasal septum is mo stly midline. The ostiomeatal complexes are narrow but patent. CT CERVICAL SPINE FINDINGS: The cervical spine is normally aligned. No acute fracture. No aggressive lytic or blastic osseous les ion. Mild multilevel degenerative disc height loss. No high-grade spinal canal stenosis or neural foramina l narrowing. The thyroid gland is normal. No cervical lymphadenopathy. The visualized aerodigestive tract is unrem arkable. The visualized lung apices are clear. Impression: 1. Acute bilateral nasal fracture, depressed on the right. 2. No acute intracranial process. Right frontal scalp injury. 3. No acute osseous abnormality of the cervical spine. Electronically signed by: Humberto Brown MD (03/30/2020 10:06 PM) [facility]
[2020-03-30 22:17] LABS: ALBUMIN 4.1 g/dL (3.4-5.0); ALBUMIN/GLOBULIN RATIO 1.1 (1.0-1.7); CALCIUM 9.3 mg/dL (8.5-10.1); CREATININE 1.1 mg/dL (0.7-1.3); GFR 66.2; POTASSIUM 4.3 mmol/L (3.5-5.1); TOTAL BILIRUBIN 0.4 mg/dL (0.2-1.0); TOTAL PROTEIN 7.7 g/dL (6.4-8.2)
--- NOTE | 2020-03-30 22:25 | RAD ---
3 views right hand and 4 views right knee HISTORY: Status post fall and puncture wound 3 views right hand: AP lateral oblique views There is degenerative changes of the interphalangeal joints and the first carpometacarpal joint consi stent with osteoporosis. There is no lytic destructive changes. There is no radiopaque foreign body. IMPRESSION: No acute findings. 4 views right knee: AP lateral oblique views and sunrise view The visualized osseous structures appear normal. Electronically signed by: Justice Branham III, MD (03/30/2020 10:14 PM) [facility]
--- NOTE | 2020-03-30 22:28 | RAD ---
3 views right hand and 4 views right knee HISTORY: Status post fall and puncture wound 3 views right hand: AP lateral oblique views There is degenerative changes of the interphalangeal joints and the first carpometacarpal joint consi stent with osteoporosis. There is no lytic destructive changes. There is no radiopaque foreign body. IMPRESSION: No acute findings. 4 views right knee: AP lateral oblique views and sunrise view The visualized osseous structures appear normal. Electronically signed by: Justice Branham III, MD (03/30/2020 10:14 PM) [facility]
[2020-03-30] MEDS ORDERED: cefTRIAXone IV Push 1 GM VIAL. IVP ONE (23:15)
[2020-03-30] MEDS ORDERED: HYDR-2765 PO (23:21)
[2020-03-30] MEDS ORDERED: AMOX1TAB61 PO (23:21)
[2020-03-30 23:24] VITALS: BP 148/85
--- NOTE | 2020-03-30 23:31 | PHYS DOC ---
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 He denies LOC, dizziness, vision changes, focal weakness, joint laxity, numbness or tingling, chest pain, shortness of breath, abdominal pain, nausea, vomiting, fever. Patient has a history of high cholesterol, diabetes, hypertension, [place], CAD, stents. Review of Systems: Review of Systems: Constitutional: Denies fever or chills. [] Eyes: Denies change in visual acuity. [] HENT: Denies nasal congestion or sore throat. +Nose pain[] Respiratory: Denies cough or shortness of breath. [] Cardiovascular: Denies chest pain or edema. +Nasal swelling[] GI: Denies abdominal pain, nausea, vomiting, bloody stools or diarrhea. [] : Denies dysuria. [] Musculoskeletal: Denies back pain. + right knee joint pain. +Right hand pain[] Integument: Denies rash. +head laceration, + knee laceration, + right hand laceration, + right superficial laceration, +Nose abrasion[] Neurologic: + headache, denies focal weakness or sensory changes. [] Endocrine: Denies polyuria or polydipsia. [] Lymphatic: Denies swollen glands. [] Psychiatric: Denies depression or anxiety. [] Heart Score: Risk Factors: Risk Factors: DM, Current or recent (<one month) smoker, HTN, HLP, family history of CAD, obesity. Risk Scores: Score 0 - 3: 2.5% MACE over next 6 weeks - Discharge Home Score 4 - 6: 20.3% MACE over next 6 weeks - Admit for Clinical Observation Score 7 - 10: 72.7% MACE over next 6 weeks - Early Invasive Strategies Current Medications: Current Medications Medications (Trade) Dose Ordered Sig/Narciso Start Time Stop Time Status Last Admin Dose Admin Diphtheria/ Tetanus/Acell Pertussis (ADACEL TDap SYRINGE) 0.5 ml ONCE ONCE 03/30/20 21:30 03/30/20 21:31 DC 03/30/20 22:09 0.5 ML Lidocaine HCl (Lidocaine 1% 20ml Vial) 20 ml 1X ONCE 03/30/20 21:30 03/30/20 21:31 DC 03/30/20 22:06 20 ML Neomycin/ Polymyxin/ Bacitracin (Triple Antibiotic Ointment) 1 pkt 1X ONCE 03/30/20 21:30 03/30/20 21:31 DC 03/30/20 22:06 1 PKT Allergies: Allergies: Allergies Coded Allergies Type Severity Reaction Last Updated Verified No Known Drug Allergies 04/10/16 No Physical Exam: PE: Constitutional: Well developed, well nourished, no acute distress, non-toxic appearance. [] HENT: Normocephalic, atraumatic, bilateral external ears normal, oropharynx moist, no oral exudates, nose normal. Dried blood at Nares. [] Eyes: PERRLA, EOMI, conjunctiva normal, no discharge. [] Neck: Normal range of motion, no tenderness, supple, no stridor. [] Cardiovascular:Heart rate regular rhythm, no murmur [] Lungs & Thorax: Bilateral breath sounds clear to auscultation [] Abdomen: Bowel sounds normal, soft, no tenderness, no masses, no pulsatile masses. [] Skin: Warm, dry, no erythema, no rash. right forehead laceration, right knee laceration, right palm of hand laceration, rigth cheek superficial laceration, nasal abrasion[] Back: No tenderness, no CVA tenderness. [] Extremities: No tenderness, no cyanosis, no clubbing, ROM intact, no edema. [] Neurologic: Alert and oriented X 3, normal motor function, normal sensory function, no focal deficits noted. [] Psychologic: Affect normal, judgement normal, mood normal. [] Current Patient Data: Labs: Laboratory Tests Test 03/30/20 21:40 White Blood Count 7.0 x10^3/uL (4.0-11.0) Red Blood Count 5.33 x10^6/uL (4.30-5.70) Hemoglobin 14.3 g/dL (13.0-17.5) Hematocrit 44.8 % (39.0-53.0) Mean Corpuscular Volume 84 fL (79-100) Mean Corpuscular Hemoglobin 27 pg (25-35) Mean Corpuscular Hemoglobin Concent 32 g/dL (31-37) Red Cell Distribution Width 13.9 % (11.5-14.5) Platelet Count 196 x10^3/uL (140-400) Neutrophils (%) (Auto) 72 % (31-73) Lymphocytes (%) (Auto) 17 % (24-48) L Monocytes (%) (Auto) 8 % (0-9) Eosinophils (%) (Auto) 2 % (0-3) Basophils (%) (Auto) 1 % (0-3) Neutrophils # (Auto) 5.1 x10^3/uL (1.8-7.7) Lymphocytes # (Auto) 1.2 x10^3/uL (1.0-4.8) Monocytes # (Auto) 0.6 x10^3/uL (0.0-1.1) Eosinophils # (Auto) 0.2 x10^3/uL (0.0-0.7) Basophils # (Auto) 0.1 x10^3/uL (0.0-0.2) Prothrombin Time 11.7 SEC (11.7-14.0) Prothrombin Time INR 0.9 (0.8-1.1) Sodium Level 137 mmol/L (136-145) Potassium Level 4.3 mmol/L (3.5-5.1) Chloride Level 101 mmol/L (98-107) Carbon Dioxide Level 26 mmol/L (21-32) Anion Gap 10 (6-14) Blood Urea Nitrogen 13 mg/dL (8-26) Creatinine 1.1 mg/dL (0.7-1.3) Estimated GFR (Cockcroft-Gault) 66.2 BUN/Creatinine Ratio 12 (6-20) Glucose Level 202 mg/dL (70-99) H Calcium Level 9.3 mg/dL (8.5-10.1) Total Bilirubin 0.4 mg/dL (0.2-1.0) Aspartate Amino Transferase (AST) 16 U/L (15-37) Alanine Aminotransferase (ALT) 34 U/L (16-63) Alkaline Phosphatase 70 U/L (46-116) Troponin I Quantitative < 0.017 ng/mL (0.000-0.055) Total Protein 7.7 g/dL (6.4-8.2) Albumin 4.1 g/dL (3.4-5.0) Albumin/Globulin Ratio 1.1 (1.0-1.7) Laboratory Tests 03/30/20 21:40 Laboratory Tests 03/30/20 21:40 Vital Signs: Vital Signs Date Time Temp Pulse Resp B/P (MAP) Pulse Ox O2 Delivery O2 Flow Rate FiO2 03/30/20 20:25 98.4 113 20 184/96 (125) 98 Room Air 98.4 EKG: EK and read by Dr. Fox as sinus rhythm and no STEMI Radiology/Procedures: Radiology/Procedures: [] Impression: [address] [address] IMAGING REPORT Signed PATIENT: JOSHUA MARTINEZ ACCOUNT: [id number] : 1950 LOCATION: ER AGE: 69 SEX: M EXAM STATUS: REG ER ORD. PHYSICIAN: FLORENTIN WEEMS APRN REASON: FALL, PUNCTURE WOUND PROCEDURE: HAND RIGHT 3V 3 views right hand and 4 views right knee HISTORY: Status post fall and puncture wound 3 views right hand: AP lateral oblique views There is degenerative changes of the interphalangeal joints and the first carpometacarpal joint consistent with osteoporosis. There is no lytic destructive changes. There is no radiopaque foreign body. IMPRESSION: No acute findings. 4 views right knee: AP lateral oblique views and sunrise view The visualized osseous structures appear normal. Electronically signed by: Shant Wooten III, MD (03/30/2020 10:14 PM) [facility] DICTATED and SIGNED BY: SHANT WOOTEN III, MD DATE: 03/30/20 [id number] [place], [place] [id number] IMAGING REPORT Signed PATIENT: JOSHUA MARTINEZ ACCOUNT: [id number] : 1950 LOCATION: ER AGE: 69 SEX: M EXAM STATUS: REG ER ORD. 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 Instructions: / History: Comparison: None. Technique: 5 mm axial tomographic images were obtained of the head without contrast. These were viewed on brain and bone windows. Axial helical images of the face were obtained without contrast. Axial and coronal reconstruction was performed. CT imaging of the cervical spine was performed without contrast. Coronal and sagittal reformatted images were performed. One or more of the following dose reduction techniques were utilized: Automated exposure control (AEC), Adjustment of mA and/or kV according to patient size, Use of iterative reconstruction technique such as ASiR, CT scan done according to ALARA and image gently/image wisely CT HEAD FINDINGS: The brain parenchyma is normal in attenuation. No intra- or extra-axial mass or fluid collection. No acute hemorrhage. The ventricles are normal in size, shape, and morphology. The eid-white matter junction is normal. The basilar cisterns are patent. The mastoid air cells are clear. No aggressive osseous lesion or fracture. Right frontal scalp injury CT FACE FINDINGS: Acute bilateral nasal fracture, depressed on the right. The paranasal sinuses are clear. The orbits are normal. The globes are intact. The nasal septum is mostly midline. The ostiomeatal complexes are narrow but patent. CT CERVICAL SPINE FINDINGS: The cervical spine is normally aligned. No acute fracture. No aggressive lytic or blastic osseous lesion. Mild multilevel degenerative disc height loss. No high-grade spinal canal stenosis or neural foraminal narrowing. The thyroid gland is normal. No cervical lymphadenopathy. The visualized aerodigestive tract is unremarkable. The visualized lung apices are clear. Impression: 1. Acute bilateral nasal fracture, depressed on the right. 2. No acute intracranial process. Right frontal scalp injury. 3. No acute osseous abnormality of the cervical spine. Electronically signed by: Ronald Gonzalez MD (03/30/2020 10:06 PM) [facility] DICTATED and SIGNED BY: RONALD GONZALEZ MD DATE: 03/30/20 [id number] Course & Med Decision Making: Course & Med Decision Making Pertinent Labs and Imaging studies reviewed. (See chart for details) See HPI. Patient states the only thing that is hurting him is his head and is a 3 out of 10 aching pain. Patient has a right forehead laceration that is 7 cm long. Patient has a right palm of hand laceration distal to the fifth finger that is 1 cm long. Patient has a right knee patella laceration that is 4 cm lo ng. Patient can bend extremities there is no laxity in any any extremities. No deformities in any extremities or joints. The right knee has 1+ swelling. No bruising or other abrasion or deformities to the face. Patient's nose is 1+ swollen and has dried blood coming out the nares bilaterally. Patient has a superficial 3 inch cut to his right cheek that is with chlorhexidine and covered with antibiotic ointment. He has a abrasion to the bridge of his nose that is cleaned with chlorhexidine and also covered with antibiotic ointment. Patient is given a tetanus shot. Patient is given 1 g of Rocephin in the ED. Signs within normal limits. Alert and oriented x4. Speaks in full complete sentences. Patient will be placed in a right knee immobilizer. No focal bony spinal tenderness with palpation. No bruising to his back. Lungs are clear to auscultation all lobes. Full range of motion of neck. Laceration repair Location: #1 right forehead 7 cm and 10 sutures using 6-0 #2 Right palm of hand 1 cm and 3 sutures using 4-0 #3 Right knee that is 4 cm and 5 sutures using 3-0 Local anesthesia: 1% lidocaine Interrupted sutures/Internal sutures: Interrupted sutures and see above Nerve/ligament/muscle damage: None Cleaning and irrigation: Hexedine and saline with thorough flushing with normal saline The appropriate timeout was taken. The area was prepped and draped in the usual sterile fashion. The wound was copiously irrigated with normal saline and chlorhexidine. Patient tolerated well without complication. Dressing was applied to the area follow-up education is given to observe for signs and symptoms of infection, bleeding and to follow-up promptly if these occur. Patient can return in 48 hours for a wound recheck. Sutures to be removed in 7 to 10 days. Blood work unremarkable. Patient is placed on antibiotics for nasal fractures and lacerations because he is diabetic. Patient is discharged home to follow-up with primary care and have the sutures removed in 10 days. He can also follow- up with orthopedics concerning his knee. Impression: 1. Acute bilateral nasal fracture, depressed on the right. 2. No acute intracranial process. Right frontal scalp injury. 3. No acute osseous abnormality of the cervical spine. [] Leonides Disclaimer: Leonides Disclaimer: This electronic medical record was generated, in whole or in part, using a voice recognition dictation system. Departure Departure Impression: Primary Impression: Fall Qualified Codes: W19.XXXA - Unspecified fall, initial encounter Additional Impressions: Laceration Head injury Qualified Codes: S09.90XA - Unspecified injury of head, initial encounter Nasal bone fracture Qualified Codes: S02.2XXA - Fracture of nasal bones, initial encounter for closed fracture Knee pain, right Qualified Codes: M25.561 - Pain in right knee Disposition: 01 DC HOME SELF CARE/HOMELESS Condition: STABLE Referrals: MARÍA STEELE APRN (PCP) LIDA ROPER MD Patient Instructions: Facial Laceration, Head Injury, Adult, Knee Immobilizer, [id number], Laceration Care, Adult, Nasal Fracture Additional Instructions: Follow-up with your primary care provider. Remove the sutures need to be removed in 10 days. I have also referred you to an orthopedic for your knee. I have referred you to a ENT to follow-up for your nasal bone fractures. Try not to blow your nose as it may start bleeding. You can use Afrin or saline spray for your nose to help clear it out. Take medication as prescribed and with food. Watch for signs of infection. Scripts Hydrocodone Bit/Acetaminophen (HYDROCODONE-APAP 7.5-325 ) 1 Tab Tablet 1 TAB PO PRN Q6HRS PRN for PAIN, #12 TAB 0 Refills Prov: FLORENTIN WEEMS APRN 03/30/20 Amoxicillin/Potassium Clav (AUGMENTIN 875-125 TABLET) 1 Each Tablet 1 TAB PO BID for 10 Days, #20 TAB 0 Refills Prov: FLORENTIN WEEMS APRN 03/30/20 FLORENTIN WEEMS APRN Mar 30, 2020 23:31
--- NOTE | 2020-04-01 11:45 | EKG ---
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
== END 2020-03-31 | disposition home or self-care (01) ==
LOC: ER 20:01
DX: S02.2XXA Fracture of nasal bones, initial encounter for closed fracture (principal); S01.81XA Laceration without foreign body of other part of head, initial encounter; S61.411A Laceration without foreign body of right hand, initial encounter; S81.011A Laceration without foreign body, right knee, initial encounter; E11.9 Type 2 diabetes mellitus without complications; I25.10 Atherosclerotic heart disease of native coronary artery without angina pectoris; Z98.890 Other specified postprocedural states; W01.0XXA Fall on same level from slipping, tripping and stumbling without subsequent striking against object, initial encounter; Y93.89 Activity, other specified; Y92.89 Other specified places as the place of occurrence of the external cause; Y99.8 Other external cause status
CPT/HCPCS: 12002; 12013; 36415; 70450; 70486; 72125; 73130; 73564; 80053; 84484; 85025; 85610; 90471; 90715; 96374; 99285; J0696; J3490; 93005

== ENCOUNTER → 2020-04-09 | Outpatient (CLI) | payer BC ==
[2020-03-30 23:24] VITALS: BP 148/85
[~2020-04-09] MED LIST changes: +AMOX1TAB61 PO; +HYDR-2765 PO; +REGADENOSON 0.4 MG/5 ML DISP.SYRIN. IV ONE
--- NOTE | 2020-04-09 14:30 | RAD ---
MR#: [id number] Date of Study: 04/09/2020 Ordering Physician: ANIKA GUZMÁN, Referring Physician: EDWARDO PICKETT Tech: RT Lm Pierson) (N) APPROVED REPORT Test Type: Pharmacological Stress Nurse/Tech: Estiven Eagle RN Test Indications: CAD Cardiac History: Stents x 3 2016, HTN, DM Medications: See Electronic Medical Record Medical History: See Electronic Medical Record Resting ECG: SR Resting Heart Rate: 80 bpm Resting Blood Pressure: 132/74mmHg Pretest Chest Pain: None Nurse/Tech Notes lungs CTA Consent: The procedure was explained to the patient in lay terms. Informed consent was witnessed. Ashok eout was entered into [employer]. History and Stress Test performed by RT Lm Pierson) (N) Pharm. Details Pharmacologic stress testing was performed using 0.4mg per 5ml of regadenoson given intravenously ove r 7-10 seconds. Stress Symptoms No chest pain or symptoms. POST EXERCISE Reason for Termination: Infusion complete Max HR: 108 bpm Max Blood Pressure: 130/80mmHg Blood Pressure response to exercise: Normal blood pressure response during stress. Heart Rate response to exercise: normal response Chest Pain: No. Arrhythmia: No. ST Change: No. INTERPRETATION Stress EKG Conclusion: Baseline EKG showed sinus rhythm with old septal infarct. No diagnostic evide nce of ischemia at peak stress. No arrhythmias. Imaging Protocol IMAGE PROTOCOL: Rest Tc-99m/stress Tc-99m 1 day Rest: Stress: Viability: Radiopharm.Tc99m IsgcrqjszJc77r Sestamibi Dose10.4mCi 30.4mCi Duration 15min. 10min. Img Date 04/09/2020 04/09/2020 Inj-Img [id number]. 60min. Rest Admin Site:IV - Right AntecubitalAdministrator:RT Dangelo (R)(N) Stress Admin Site: IV - Right AntecubitalAdministrator: RT Dangelo (R)(N) STRESS DATA End Diast. Vol.90.0mlLVEDV index BSA40.0ml End Syst. Vol.30.0mlLVESV index BSA13.0ml Myocardial Zlrz538.0gEject. Bliqawjh28.0% Stress Scores Regional WT0.00Summed WT1.00 Regional WM0.00Summed WM3.00 LV Perfusion Scintigraphic images showed a small fixed defect involving the apical wall consistent with previous m yocardial infarction without any reversibility. Wall Motion Normal left ventricle systolic function with ejection fraction calculated at 67%. LV Perf. Quant 17 Seg. SSS14.00 17 Seg. SRS12.00 17 Seg. SDS3.00 Stress Defect Extent (% LAD)36.90Rest Defect Extent (% LAD)38.10Rev. Defect Extent (% LAD)2.50 Stress Defect Extent (% LCX) 0.00Rest Defect Extent (% LCX)0.00Rev. Defect Extent (% LCX)0.00 Stress Defect Extent (% RCA)0.00Rest Defect Extent (% RCA)27.80Rev. Defect Extent (% RCA)0.00 Stress Defect Extent (% GURJIT)23.70Rest Defect Extent (% GURJIT)27.40Rev. Defect Extent (% GURJIT)2.80 Conclusion 1. Regadenoson cardioisotope stress test showed small apical wall infarct without any ischemia. 2. Normal left ventricular systolic function with ejection fraction calculated at 67%. 3. Low risk for cardiac events. Signed by : Jose F Rebollar, Electronically Approved : 04/09/2020 14:29:29
== END ==
LOC: NM 09:20
PROVIDERS: ATTEND Internal Medicine Cardiovascular Disease
DX: I21.02 ST elevation (STEMI) myocardial infarction involving left anterior descending coronary artery (principal); I10 Essential (primary) hypertension; Z95.5 Presence of coronary angioplasty implant and graft
CPT/HCPCS: 78452; 93017; A9500; J2785

== ENCOUNTER 2020-04-10 14:21 | Emergency (ER) | payer BC, OTHER ==
[~2020-04-10] VITALS: Ht 182.9 cm; Wt 80.0 kg
[~2020-04-10 14:21] MED LIST changes: +LISI-338 PO; -LISI-517 PO; -LISI10TA16 PO; +LISI10TA2 PO; -NAPR-699 PO; +NAPR250T6 PO; -REGADENOSON 0.4 MG/5 ML DISP.SYRIN. IV ONE
[2020-04-10 15:14] VITALS: BP 123/74
--- NOTE | 2020-04-10 15:36 | ED.ADGEN ---
Past Medical History Past Medical History: CAD, Diabetes-Type II Past Surgical History: Other Additional Past Surgical Histo: HERNIA REPAIR, heart stents Smoking Status: Never Smoker Alcohol Use: None Drug Use: None General Adult EDM: Chief Complaint: SUTURE/STAPLE REMOVAL HPI: HPI: Patient is a 69 year old male who presents to the emergency department with request for suture removal. Patient states that he was here on March 30, 2020 and had 10 sutures put in his left forehead, 3 sutures put in his right hand, and 4 sutures put in his right knee. He denies any redness, warmth, or drainage from any of the sites. The patient denies any numbness, tingling, or pain of the affected areas. He denies having any fever. Patient currently denies any pain. Review of Systems: Review of Systems: Complete ROS is negative unless otherwise noted in HPI. Allergies: Allergies: Allergies Coded Allergies Type Severity Reaction Last Updated Verified No Known Drug Allergies 04/10/16 No Physical Exam: PE: See Above Constitutional: Well developed, well nourished, no acute distress, non-toxic appearance. [] HENT: Normocephalic, atraumatic, bilateral external ears normal, nose normal. [] Eyes: PERRLA, EOMI, conjunctiva normal, no discharge. [] Neck: Normal range of motion, no stridor. [] Cardiovascular:Heart rate regular rhythm Lungs & Thorax: Respirations even and unlabored, no retractions, no respiratory distress Skin: Warm, dry, no erythema, no rash; healed lacerations noted to the right forehead, right hand, and right anterior knee, all 3 sites are well approximated with mild crusting throughout, there is no purulent drainage or bleeding at any site. There is mild surrounding erythema of the right knee wound but no warmth. [] Extremities: No cyanosis, ROM intact, no edema. [] Neurologic: Alert and oriented X 3, no focal deficits noted. [] Psychologic: Affect normal, judgement normal, mood normal. [] Current Patient Data: Vital Signs: Vital Signs Date Time Temp Pulse Resp B/P (MAP) Pulse Ox O2 Delivery O2 Flow Rate FiO2 04/10/20 15:14 97.9 78 16 123/74 (90) 97 97.9 04/10/20 15:06 Room Air EKG: EKG: [] Heart Score: Risk Factors: Risk Factors: DM, Current or recent (<one month) smoker, HTN, HLP, family history of CAD, obesity. Risk Scores: Score 0 - 3: 2.5% MACE over next 6 weeks - Discharge Home Score 4 - 6: 20.3% MACE over next 6 weeks - Admit for Clinical Observation Score 7 - 10: 72.7% MACE over next 6 weeks - Early Invasive Strategies Radiology/Procedures: Radiology/Procedures: Indication: Suture removal Procedure: The patient was placed in the appropriate position and 10 sutures were removed from the right forehead without difficulty, 3 sutures were removed from the right hand, and 4 sutures were removed from the right knee. There was no wound dehiscence at any of the sites. The patient tolerated the procedure well. Complications: None. Course & Med Decision Making: Course & Med Decision Making Pertinent Labs and Imaging studies reviewed. (See chart for details) [] Dragon Disclaimer: Dragon Disclaimer: This electronic medical record was generated, in whole or in part, using a voice recognition dictation system. Departure Departure Impression: Primary Impression: Encounter for removal of sutures Disposition: 01 DC HOME SELF CARE/HOMELESS Condition: STABLE Referrals: MARÍA STEELE APRN (PCP) Patient Instructions: Suture Removal-Brief Additional Instructions: Continue to apply antibiotic ointment to the right forehead and right knee as discussed. Follow-up with your primary care doctor as needed, return to the ER if symptoms worsen or fever develops. AMBROSE BENAVIDEZ APRN Apr 10, 2020 15:36
== END 2020-04-10 15:40 | disposition home or self-care (01) ==
LOC: ER 14:21
DX: S01.81XD Laceration without foreign body of other part of head, subsequent encounter (principal); E11.9 Type 2 diabetes mellitus without complications; I25.10 Atherosclerotic heart disease of native coronary artery without angina pectoris; X58.XXXD Exposure to other specified factors, subsequent encounter
CPT/HCPCS: 99281; 99282